=== PATIENT | male | born 1980 | race Caucasian/White ===

== ENCOUNTER 2017-11-26 10:24 | Emergency (ER) | payer OTHER, SELFPAY ==
[2017-11-26 10:25] VITALS: BP 138/74; PULSE 73; RESP 15; TEMP 36.8; O2SAT 99; BMI 24.3
--- NOTE | 2017-11-26 10:50 | ED.VISSUMM ---
- ER Visit Summary Date of Service: 11/26/17 Chief Complaint: Back pain History of Present Illness: The patient is a 36 M who presents with right lower back pain that has been constant for the past 2 days. Patient states he felt pain in his back while getting out of bed yesterday. Patient states he has been doing some running recently to prepare for his fitness training for [employer]. Patient denies any radiation of the pain. Patient states the pain is worse with certain movements. Patient states the pain improves slightly with heat. Patient denies any changes in his bowel or bladder. Patient denies any saddle anesthesia. Physical Examination: Vital signs are stable. Patient is afebrile. Patient is in no acute distress. Musculoskeletal exam reveals tenderness over the right lower lumbar paraspinal areas and over the sciatic notch. There is no bony crepitance or step-off. Range of motion was slightly limited in all motion secondary to pain. Strength is 5/5 bilateral in the upper and lower extremities. There are no sensory deficits noted. Deep tendon reflexes are 2+/4 bilaterally. The remaining physical exam is within normal limits. Emergency Department Course and Treatment: Patient was given a prescription for Naprosyn. Patient was instructed to continue using ice and heat as needed for pain. Patient was instructed to follow-up with his primary care physician in 5-7 days. Patient understood and was agreeable with the plan. All questions were answered. Disposition: Discharge home Impression: Lumbosacral strain This note was generated with [employer] dictation software. It may contain incorrect words, spelling, and punctuation that were not noted in review of the chart prior to signing ED Disposition - Plan for ED Patient: Disposition: Home or Assisted Living Chief Complaint: Back Diagnosis: Lumbosacral strain Instructions: ED Sprain Strain Lumbar Prescriptions: Naproxen [Naprosyn] 500 mg PO BID PRN #20 tab Referrals: Care Physician,No Primary [Primary Care Provider] -
--- NOTE | 2017-11-26 10:53 | ED.DCSUM_ITS ---
- ER Visit Summary Date of Service: 11/26/17 Chief Complaint: Back pain History of Present Illness: The patient is a 36 M who presents with right lower back pain that has been constant for the past 2 days. Patient states he felt pain in his back while getting out of bed yesterday. Patient states he has been doing some running recently to prepare for his fitness training for [employer]. Patient denies any radiation of the pain. Patient states the pain is worse with certain movements. Patient states the pain improves slightly with heat. Patient denies any changes in his bowel or bladder. Patient denies any saddle anesthesia. Physical Examination: Vital signs are stable. Patient is afebrile. Patient is in no acute distress. Musculoskeletal exam reveals tenderness over the right lower lumbar paraspinal areas and over the sciatic notch. There is no bony crepitance or step-off. Range of motion was slightly limited in all motion secondary to pain. Strength is 5/5 bilateral in the upper and lower extremities. There are no sensory deficits noted. Deep tendon reflexes are 2+/4 bilaterally. The remaining physical exam is within normal limits. Emergency Department Course and Treatment: Patient was given a prescription for Naprosyn. Patient was instructed to continue using ice and heat as needed for pain. Patient was instructed to follow-up with his primary care physician in 5- 7 days. Patient understood and was agreeable with the plan. All questions were answered. Disposition: Discharge home Impression: Lumbosacral strain This note was generated with [employer] dictation software. It may contain incorrect words, spelling, and punctuation that were not noted in review of the chart prior to signing ED Disposition - Plan for ED Patient: Disposition: Home or Assisted Living Chief Complaint: Back Diagnosis: Lumbosacral strain Instructions: ED Sprain Strain Lumbar Prescriptions: Naproxen [Naprosyn] 500 mg PO BID PRN #20 tab Referrals: Care Physician,No Primary [Primary Care Provider] -
== END 2017-11-26 11:09 | disposition home or self-care (01) ==
LOC: ED 11:02
PROVIDERS: Emergency Provider Emergency Medicine; Family Provider Family Medicine; PCP Family Medicine
DX: S39.012A Strain of muscle, fascia and tendon of lower back, initial encounter (principal); Z79.899 Other long term (current) drug therapy; X58.XXXA Exposure to other specified factors, initial encounter; Y93.89 Activity, other specified; Y92.003 Bedroom of unspecified non-institutional (private) residence as the place of occurrence of the external cause; Y99.8 Other external cause status
CPT/HCPCS: 99282

== ENCOUNTER 2018-04-15 10:32 | Emergency (ER) | payer OTHER, SELFPAY ==
[2018-04-15 10:34] VITALS: BP 124/78; PULSE 69; RESP 16; TEMP 36.6; O2SAT 99; BMI 25.8
--- NOTE | 2018-04-15 11:03 | RAD_ITS ---
STUDY: X-RAY - RIGHT HAND REASON FOR EXAM: Male, 37 years old. Dog bite. TECHNIQUE: 3 view(s) of the hand. COMPARISON: None. FINDINGS: Normal radiocarpal articulation. Normal distal radioulnar joint. Normal visualized carpal bones. Normal carpal articulations Normal carpometacarpal articulation of the thumb. Normal second through fifth carpometacarpal joints. Normal metacarpi. Normal metacarpophalangeal joint of the thumb. Normal interphalangeal joint of the thumb. Normal proximal and distal phalanges of the thumb. Normal metacarpophalangeal joints of the second through fifth fingers. Normal proximal and distal interphalangeal joints of the second through fifth fingers. Normal phalanges of the second through fifth fingers. The soft tissue structures are unremarkable. RAD/Hand Min 3 Views IMPRESSION: No evidence of acute osseous injury. Electronically Signed: Ramone Durand DO at 11:47 EDT , Service support ,
--- NOTE | 2018-04-15 11:04 | ED.VISSUMM ---
- ER Visit Summary Date of Service: 04/15/18 Chief Complaint: Dog bite to right hand right History of Present Illness: The patient is a 37 M who presents for a dog bite that occurred 8 hours prior to presentation. Patient 60 pound dog was having a seizure and bit down on his right hand. Patient is not sure when his last tetanus was. Patient is having pain at the site of the bite as well as some mild numbness. Patient cleaned the wound thoroughly at the time of the bite. He denies any other injuries. Is not on any blood thinners. Dog's vaccinations are up-to-date. Physical Examination: Vital signs: afebrile, hemodynamically stable, no hypoxia on room air General: well nourished, well developed, in no distress Right hand shows a 2 cm laceration over the thenar eminence with associated swelling, a 0.8 cm laceration over the mid proximal dorsum of the hand with swelling and tenderness, and 2 superficial abrasions to the palmar creases. Sensation intact all dermatomes. Full making of a fist is limited secondary to pain. Otherwise patient has full active range of motion of all fingers. No other injuries noted. Test Results: Clinical Impression(s) from Imaging Studies Hand X-Ray 04/15/18 11:03 IMPRESSION: No evidence of acute osseous injury. Electronically Signed: Ramone Durand DO at 11:47 EDT , Service support , Medications Given Discontinued Medications Acetaminophen (Tylenol) 1,000 mg PO X1 ONE Stop: 04/15/18 11:04 Last Admin: 04/15/18 11:44 Dose: Not Given Diphtheria/Tetanus/Acell Pertussis (Adacel) 0.5 ml IM .ONCE ONE Stop: 04/15/18 11:04 Last Admin: 04/15/18 11:44 Dose: 0.5 ml Ibuprofen (Motrin) 600 mg PO X1 ONE Stop: 04/15/18 11:44 Last Admin: 04/15/18 11:44 Dose: 600 mg Lidocaine HCl (Lidocaine Hcl 1% Mdv) 0 ml INFILT X1 ONE Stop: 04/15/18 11:04 Last Admin: 04/15/18 11:45 Dose: 10 ml Emergency Department Course and Treatment: Patient's tetanus was updated. He was given Tylenol for pain. An x-ray was performed to evaluate for any possible bony involvement given the location of the deep white maldonado. There is no foreign body or bony involvement noted. The 2 deeper lacerations were locally anesthetized with lidocaine and copiously irrigated with tap water. They were then explored with full range of motion of the fingers and no tendinous involvement was noted. The 2 cm laceration was loosely approximated with 2 simple interrupted sutures, and the 0.8 cm laceration was loosely approximated with one simple interrupted suture. Patient was placed in a Velcro splint after bacitracin was applied to the wounds and sterile dressings were applied. Patient was placed on Augmentin for action prophylaxis. Patient was discharged home and will have the sutures removed in 7 days. Return precautions given. Patient had full range of motion of his fingers at time of discharge. Treatment Plan: [] Disposition: [] Impression: Multiple lacerations secondary to dog bite status post suturing This note was generated with [employer] dictation software. It may contain incorrect words, spelling, and punctuation that were not noted in review of the chart prior to signing ED Disposition - Plan for ED Patient: Disposition: Home or Assisted Living Instructions: ED Bite Dog, ED Laceration Hand Prescriptions: Amox/Clavulanate Tablet [Augmentin Tablet] 875 mg PO Q12H #14 tab Referrals: Parker Patterson DO [Primary Care Provider] - 7 Days for suture removal Additional Instructions: Take the antibiotic twice daily to help prevent infection. If at any point you notice severe pain, red streaking, severe swelling, pus draining from the wounds, or of any other concerns for infection, return immediately to the emergency department for reevaluation. Wear the splint as needed for protection of the wounds and to help healing. Keep the bandaging in place for the first 24 hours. After that you may remove the bandaging and wash the wounds gently with soap and water. Cover them with bacitracin ointment and then a bandage. Have the sutures removed in 7 days by a healthcare professional. If you note any difficulty using your fingers or have any numbness or tingling in the hand, please return to the emergency department for another evaluation. If you have any worsening of your condition or any new concerning symptoms, please return immediately to the emergency department for another evaluation.
[2018-04-15] MEDS: Diphth,Pertuss(Acell),Tet Vac 0.5 ML Vial IM (11:44)
[2018-04-15] MEDS: Ibuprofen 600 MG Tablet PO (11:44)
[2018-04-15 13:50] VITALS: PULSE 76; RESP 14; O2SAT 97
== END 2018-04-15 13:52 | disposition home or self-care (01) ==
PROVIDERS: Emergency Provider Emergency Medicine; Family Provider Family Medicine; PCP Family Medicine
DX: S61.411A Laceration without foreign body of right hand, initial encounter (principal); Z23 Encounter for immunization; Z79.899 Other long term (current) drug therapy; W54.0XXA Bitten by dog, initial encounter; Y93.89 Activity, other specified; Y92.009 Unspecified place in unspecified non-institutional (private) residence as the place of occurrence of the external cause; Y99.8 Other external cause status
CPT/HCPCS: 12002; 73130; 90715; 99284; J7030

== ENCOUNTER 2021-04-15 07:24 | Day surgery (SDC) | payer OTHER, SELFPAY ==
[2021-04-15] VITALS (7 sets, daily range): BP systolic 120–131; BP diastolic 78–95; PULSE 57–76; RESP 14–18; TEMP 36.1–37; O2SAT 97–100; BMI 24.5
--- NOTE | 2021-04-15 | COLBX_PTH ---
PATIENT: MANINDER CONDE LOC: EN U#:[id number] AGE/SX: 40/M ROOM: RE04/15/[address]: Dr. Curly Le MD : 1980 BED: DIS: 04/15/2021 SPEC #: [id number] RECD: 04/15/21 14:40 STATUS: SOBEIDA WALDROP #: [id number] CAYETANO: 04/15/21 00:[address]: Curly Le DEPT: SURGICAL PATHOLOGY RECD BY: Marty Duncan ENTERED: 04/16/21 10:03 SP TYPE: COLON BX OTHR DR: Dr. Parker Patterson, DO Tissues: Rectum, NOS Procedures: Surgery Specimen Level IV HEADER OPERATION: Colonoscopy (MAC) biopsy PRE-OP DIAGNOSIS: Screening TISSUE SUBMITTED: Rectal polypoid lesion MICROSCOPIC DIAGNOSIS Rectal polyp, biopsy: Polypoid fragments of benign colonic mucosa with focal mucosal denudation and recent hemorrhage. See comment. AM:wilber 04/19/2021 COMMENT Neither hyperplastic nor adenomatous change is identified. Clinical correlation is suggested. MICROSCOPIC DESCRIPTION Slides are reviewed. GROSS DESCRIPTION Received in fixative is one container labeled with the patient's name and designated rectal polypoid lesion. The specimen consists of multiple irregular fragments of light gonsalez soft tissue that in aggregate measure 1 x 0.4 x 0.1 cm. The specimen is totally submitted in one cassette. / SJ:wilber 04/16/2021 TC:5 CPT: 60937
[2021-04-15] MEDS: Lactated Ringers 1,000 ML 15 ML IV ×2 (08:27→10:00)
--- NOTE | 2021-04-15 08:30 | HP.PCM_ITS ---
History and Physical Date of Admission: 04/15/21 Date of Service: 03/30/21 MR#:[id number]:[id number]: MANINDER CONDE #:[id number] Provider:Edgard Dan/Sex: 40/M [facility] Intake Vital Signs 03/30/21 08:22 Height 5 ft 8 in Weight: 161 lb 4 oz BMI 24.5 BP 116/80 Blood Pressure Location Rt brachial Position Sitting Respiration 16 Pulse 78 Pulse Source Monitor Temp 97.4 F L Temp Source Temporal Pulse Oximetry (%) 100 Oxygen Delivery Method room air Intake Visit Reasons: COLONOSCOPY Chief Complaint: Colonoscopy Scientologist Required: No Is patient in pain?: No Allergies No Known Allergies Allergy (Verified 03/30/21 08:23) Medications Dextroamphetamine/Amphetamine [Dextroamp-Amphet Er 20 Mg Cap] 30 mg PO DAILY 03/30/21 [History] PFSH Family History Mother Colon cancer at age 44 from colon CA Social History Smoking Status: Former smoker HPI HPI HPI: MANINDER CONDE, is a 40 M who presents to the office today for need to schedule screening colonoscopy secondary to family history. Patient relates that his mother was diagnosed with colon cancer at the age of 41 and succumbed to this diagnosis at the age of 44. They are referred for surgical consultation from [facility]. Patient has not had prior colonoscopy. Patient has no personal history of diverticulitis, inflammatory bowel disease, or colon cancer. They describe their bowel habits as generally normal but occasionally experience constipation (estimates once monthly). Along with this, patient admits to occasional flares with hemorrhoids. They have approximately 1-2 per day without significant straining. They do not regularly take fiber supplements. As above, patient has family history of colon cancer in his mother, but additionally he states that his paternal grandfather has a diagnosis of Crohn's.. The patient's weight is stable. Patient does not take any blood thinners. Patient has no history of reflux. ROS General General: No weight change, appetite, fatigue, colon cancer, breast cancer or weakness HEENT HEENT: No difficulty swallowing, eye injury, eye surgery, swollen glands or hoarseness Endo Endocrine: No thyroid disease, diabetes mellitus, thyroid cancer, Hair loss, heat intolerance or cold intolerance Skin Skin: No rash or changing moles Musc Musculoskeletal: No back problems, arthritis, rheumatoid arthritis, gout or joint pain Cardio Cardiovascular: No murmur, pacemaker, heart disease, atrial fibrillation, high blood pressure, heart attack, heart stent, palpitations, shortness of breat with exertion or chest pain Psych Psychiatric: No depression, anxiety or hearing voices Resp Respiratory: No shortness of breath, No sleep apnea, No cough, No COPD, No asthma, No emphysema and No wheezing Gastro Gastrointestinal: No abdominal pain, No nausea or vomiting, No diarrhea, No constipation, No blood in stool, No acid reflux, No hemorrhoids, No ulcers, No gallbladder problem and No black,tarry stools Jean Hematologic: No blood thinners, No blood disorders, No bleeding, No anemia and No blood clots Neuro Neurologic: No system reviewed and no additional complaints, except as documented, No as per HPI, No abnormal gait, No abnormal hearing, No abnormal movements, No abnormal speech, No behavioral changes, No burning sensations, No confusion, No convulsions, No disequilibrium, No dizziness, No localized weakness, No frequent falls, No headache(s), No lack of coordination, No loss of vision, No memory loss, No numbness, No other visual disturbances, No radicular pain, No restless legs, No sensory deficit, No syncope, No tingling, No tremor(s), No weakness and No other Exam Const General: cooperative, comfortable and no acute distress Orientation: alert, awake and oriented x3 GI Inspection: normal to inspection and non-distended Palpation: soft, no hernias, no masses and nontender Assessment and Plan Assessment and Plan (1) Family hx of colon cancer requiring screening colonoscopy: Status: Acute Comment: This is a 40-year-old male who presents with a first-degree relative (mother) who was diagnosed with colon cancer at the age of 41. Additionally, patient has a paternal grandfather with Crohn's. For his part, Mr. Conde, has very few concerns related to his bowel activity, but does acknowledge some intermittent constipation issues. In light of patient's family history, a screening colonoscopy is certainly indicated. We discussed the procedure, preprocedure prep, and post-? procedure follow-up. Patient is accepting of this information and expresses understanding. Plan - Dr. Curly Le MD: Plan will be to complete colonoscopy on first mutually agreeable date under local MAC. Pre-procedure prep discussed and paper instructions provided. Given the patient's history of intermittent constipation, I have asked him to assume a clear liquid diet the day prior to his prep to better ensure adequacy for endoscopic exam. Patient is also made aware that he will need to have a pole truck driver with him the day of the procedure. I have re-examined the patient. There are no clinical changes since date of exam. Patient notified us early today that he was still having brown output. Therefore he was prescribed an additional enema this morning. Thereafter he now has clear output. We will proceed to endoscopy suite for scheduled screening colonoscopy in this patient with a rather significant family history for colon cancer and IBD.
--- NOTE | 2021-04-15 09:43 | OP.COLON_ITS ---
Patient Name: Song Puga Procedure Date: 04/15/2021 8:28 AM Date of : 1980 Age: 40 Procedure: Colonoscopy Indications: Screening in patient at increased risk: Colorectal cancer in mother before age 60 Providers: Curly Le MD Medicines: See the Anesthesia note for documentation of the administered medications Patient Profile: This is a 40 year old male. Refer to note in patient chart for documentation of history and physical. Last Colonoscopy: none. The patient's first colonoscopy is today. Complications: No immediate complications. Estimated blood loss: Minimal. Procedure: Pre-Anesthesia Assessment: - The heart rate, respiratory rate, oxygen saturations, blood pressure, adequacy of pulmonary ventilation, and response to care were monitored throughout the procedure. After I obtained informed consent, the scope was passed under direct vision. Throughout the procedure, the patient's blood pressure, pulse, and oxygen saturations were monitored continuously. The colonoscope was introduced through the anus and advanced to the cecum, identified by appendiceal orifice and ileocecal valve. The colonoscopy was somewhat difficult due to poor bowel prep with stool present. Successful completion of the procedure was aided by lavage. The patient tolerated the procedure fairly well. Scope In: 8:41:17 AM Scope Withdrawal Time 0 hours 39 minutes 19 seconds Scope Out: 9:33:03 AM Total Procedure Duration Time 0 hours 51 minutes 46 seconds Findings: A 5 mm polypoid lesion was found in the rectum and in the distal sigmoid colon. The lesion was polypoid. No bleeding was present. Biopsies were taken with a cold forceps for histology. Estimated blood loss was minimal. Coagulation for hemostasis of bleeding caused by the procedure using heater probe was successful. Internal hemorrhoids were found during retroflexion. The hemorrhoids were Grade I (internal hemorrhoids that do not prolapse). No biopsies or other specimens were collected for this exam. Impression: - Polypoid lesion in the rectum and in the distal sigmoid colon. Biopsied. Treated with a heater probe. - Internal hemorrhoids. No specimens collected. Recommendation: - Discharge patient to home (via wheelchair). - Resume regular diet today. - Continue present medications. - Await pathology results. - Repeat colonoscopy for surveillance based on pathology results. - Telephone my office for pathology results in 1 week. Procedure Code(s): --- Professional --- 34099, Colonoscopy, flexible; with biopsy, single or multiple Diagnosis Code(s): --- Professional --- Z80.0, Family history of malignant neoplasm of digestive organs D49.0, Neoplasm of unspecified behavior of digestive system K64.0, First degree hemorrhoids CPT copyright 2017 [employer]. All rights reserved. The codes documented in this report are preliminary and upon manager [employer] sigma review may be revised to meet current compliance requirements. Curly Le MD 04/15/2021 9:43:20 AM This report has been signed electronically. Number of Addenda: 0 Note Initiated On: 04/15/2021 8:28 AM
--- NOTE | 2021-04-15 09:44 | OP.CCLET_ITS ---
04/15/2021 Parker Patterson [address] [place] [address] Re : Colonoscopy procedure for Song Puga Dear Dr. Patterson This procedure was performed on April. My impressions and recommendations are as follows: Impressions : - Polypoid lesion in the rectum and in the distal sigmoid colon. Biopsied. Treated with a heater probe. - Internal hemorrhoids. No specimens collected. Recommendations : - Discharge patient to home (via wheelchair). - Resume regular diet today. - Continue present medications. - Await pathology results. - Repeat colonoscopy for surveillance based on pathology results. - Telephone my office for pathology results in 1 week. My findings are described in the full procedure note, which is enclosed. If I can be of further assistance, please feel free to contact me at Doctor phone number(s): , Work: . Sincerely, Curly Le MD 04/15/2021 9:43:20 AM This report has been signed electronically.
== END 2021-04-15 23:59 | disposition home or self-care (01) ==
LOC: EN 07:24 → AC 07:25
PROVIDERS: PCP Family Medicine; Referring Provider Family Medicine; Visit Provider Surgery
PROC: 0DJD8ZZ Inspection of Lower Intestinal Tract, Via Natural or Artificial Opening Endoscopic (ICD-10-PCS; CPT 45378; principal; 2021-04-15 08:25)
DX: K62.1 Rectal polyp (principal); K64.0 First degree hemorrhoids; Z87.891 Personal history of nicotine dependence; Z80.0 Family history of malignant neoplasm of digestive organs; Z79.899 Other long term (current) drug therapy
CPT/HCPCS: 45380; 87426; 88305; C9803; J7120; J2405

== ENCOUNTER → 2021-10-12 | Outpatient (CLI) | payer OTHER, SELFPAY ==
[2021-10-12 18:42] LABS: Amphetamine Urine VISTA POSITIVE (<1000 ng/mL); Barbiturate Urine VISTA NEGATIVE (< 200 ng/mL); Benzodiazepine Urine VISTA NEGATIVE (< 200 ng/mL); Cocaine Urine VISTA NEGATIVE (< 300 ng/mL); Ecstacy Urine VISTA POSITIVE (< 500 ng/mL); Methadone Urine VISTA NEGATIVE (< 300 ng/mL); PCP Urine VISTA NEGATIVE (< 25 ng/mL); THC Urine VISTA NEGATIVE (< 50 ng/mL); Vista UDS pH Range 4
== END | disposition home or self-care (01) ==
PROVIDERS: PCP Family Medicine; Visit Provider Family Medicine
DX: F90.9 Attention-deficit hyperactivity disorder, unspecified type (principal); Z79.899 Other long term (current) drug therapy
CPT/HCPCS: 80307

== ENCOUNTER → 2024-08-06 | Outpatient (CLI) | payer SELFPAY ==
[2024-08-06 21:07] LABS: Barbiturate Urine NEGATIVE (< 200 ng/mL); Benzodiazepine Urine NEGATIVE (< 200 ng/mL); PCP Urine NEGATIVE (< 25 ng/mL); THC Urine NEGATIVE (< 50 ng/mL)
== END | disposition home or self-care (01) ==
PROVIDERS: PCP Family Medicine; Visit Provider Family Medicine
DX: Z79.899 Other long term (current) drug therapy (principal)
CPT/HCPCS: 80307

== ENCOUNTER → 2024-09-27 | Outpatient (CLI) | payer SELFPAY ==
[2024-09-27 18:39] LABS: Barbiturate Urine NEGATIVE (< 200 ng/mL); Benzodiazepine Urine NEGATIVE (< 200 ng/mL); PCP Urine NEGATIVE (< 25 ng/mL); THC Urine NEGATIVE (< 50 ng/mL)
== END | disposition home or self-care (01) ==
LOC: LABSPEC 17:04
PROVIDERS: PCP Family Medicine; Visit Provider Family Medicine
DX: Z79.899 Other long term (current) drug therapy (principal)
CPT/HCPCS: 80307

== ENCOUNTER → 2024-09-27 | Outpatient (CLI) | payer SELFPAY | END | disposition home or self-care (01) | LOC: LAB.FUTURE 17:01 | PROVIDERS: PCP Family Medicine; Visit Provider Family Medicine | DX: Z79.899 Other long term (current) drug therapy (principal) ==